=== PATIENT | male | born 1955 | race Caucasian/White ===

== ENCOUNTER → 2016-07-30 | Outpatient (CLI) | payer BC ==
[~2016-07-30] MED LIST: ASPCH81X PO; ASPI81TA28 PO; AZITTAB PO; HYDR-5688 PO; LPT/20 PO; PRLSR20 PO
--- NOTE | 2016-07-30 10:32 | DIAGNOSTIC IMAGING REPORT ---
ULTRASOUND OF THE CAROTID ARTERIES CLINICAL HISTORY: Dizziness COMPARISON STUDY: None. TECHNIQUE: Real-time, grayscale, and color Doppler sonography of the carotid arteries was performed. Imaging reviewed in the transverse and longitudinal planes. NASCET criteria was utilized for stenosis calcification. FINDINGS: There is mild atherosclerotic plaque present . The peak systolic velocity within the right internal carotid artery is 57 cm/sec. The systolic velocity ratio of right internal to common carotid artery is 0.5. The peak systolic velocity within the left internal carotid artery is 89 cm/sec. The systolic velocity ratio left internal to common carotid artery is 0.9. Antegrade flow is seen in the vertebral arteries. The external carotid arteries are patent. Blood pressure in the right arm measured 128 mm/Hg. Blood pressure in the left arm measured 138 mm/Hg. IMPRESSION: No evidence of hemodynamically significant carotid stenosis. Electronically signed by: Declan Hanson M.D. 07/30/2016 10:31 AM Dictated Date/Time: 07/30/2016 10:30 AM
== END | disposition home or self-care (01) ==
LOC: C.ULTR 09:21
PROVIDERS: ATTEND Nurse Practitioner Adult Health
DX: Z87.898 Personal history of other specified conditions (principal)

== ENCOUNTER 2016-09-20 23:32 | Emergency (ER) | payer BC ==
[~2016-09-20] VITALS: Ht 180.3 cm; Wt 111.9 kg
[~2016-09-20 23:32] MED LIST changes: -ASPI81TA28 PO; -AZITTAB PO; -HYDR-5688 PO; -LPT/20 PO
[2016-09-20 23:35] VITALS: TEMP 37.9; Ht 180.3 cm; Wt 111.9 kg
--- NOTE | 2016-09-20 23:55 | EMERGENCY ROOM VISIT NOTE ---
History Report prepared by Gina: Saul Boucher Under the Supervision of: Dr. Link Monsalve D.O. First contact with patient: 23:41 Chief Complaint: ABDOMINAL PAIN Stated Complaint: ABD PAIN,COUGHING UP BLOOD History of Present Illness The patient is a 61 year old male who presents to the Emergency Room with complaints of a persistent cough that the patient has been experiencing for the past week. This evening, 1 hour prior to arrival, the patient noticed some bright red blood in the phlegm that his cough was producing. He is also currently complaining of right upper quadrant abdominal pain. This pain is significantly worsened with his cough. He rates his abdominal pain as a 10/10 in severity when he coughs. He is breathing fine, and denies any chest pain or recent vomiting episodes. The patient has had no recent infections or respiratory colds. He denies any history of pneumonia or tuberculosis. He has no sick contacts. Source of History: patient Onset: 1 week DETACKER Position: other (Respiratory) Quality: other (Cough ) Timing: other (Persistent) Associated Symptoms: + abdominal pain (RUQ), No SOB, No chest pain Note: Coughing up blood Review of Systems See HPI for pertinent positives and negatives. A total of ten systems were reviewed and were otherwise negative. Past Medical & Surgical Surgical Problems: (1) History of appendectomy Family History Cancer Diabetes mellitus Gallbladder disease Heart disease Hypertension Kidney disease Social History Smoking Status: Never Smoker Alcohol Use: none Marital Status: single Housing Status: lives alone Occupation Status: employed Current/Historical Medications Scheduled Aspirin (Aspirin Ec), 81 MG PO QAM Atorvastatin (Atorvastatin Calcium), 20 MG PO QAM Azithromycin (Zithromax Z-Lionel), 0 PO UD Scheduled PRN Hydrocodone/Acetaminophen 5MG/325MG (Murray 5MG/325MG), 1 TABLET PO QID PRN for Pain Omeprazole (Prilosec), 20 MG PO DAILY PRN for GI Upset Allergies Coded Allergies: No Known Allergies (Unverified , 09/21/16) Physical Exam Vital Signs Date Time Temp Pulse Resp B/P Pulse Ox O2 Delivery O2 Flow Rate FiO2 09/21/16 01:33 Room Air 09/21/16 01:33 Room Air 09/20/16 23:35 37.9 95 20 121/80 94 Room Air Physical Exam GENERAL: Awake, alert, well-appearing, in no distress HENT: Normocephalic, atraumatic. Oropharynx unremarkable. EYES: Normal conjunctiva. Sclera non-icteric. NECK: Supple. No nuchal rigidity. FROM. No JVD. RESPIRATORY: Clear to auscultation. CARDIAC: Regular rate, normal rhythm. Extremities warm and well perfused. Pulses equal. ABDOMEN: Soft, non-distended. Mild epigastric tenderness to palpation. No rebound or guarding. No masses. RECTAL: Deferred. MUSCULOSKELETAL: Chest examination reveals no tenderness. The back is symmetrical on inspection without obvious abnormality. There is no CVA tenderness to palpation. No joint edema. LOWER EXTREMITIES: Calves are equal size bilaterally and non-tender. No edema. No discoloration. NEURO: Normal sensorium. No sensory or motor deficits noted. SKIN: No rash or jaundice noted. Medical Decision & Procedures ER Provider Diagnostic Interpretation: X ray results as stated below per my interpretation and radiologist interpretation. Other radiology results as stated below per my review and radiologist interpretation CTA CHEST: Fusiform aneurysmal dilation of the ascending thoracic aorta, measuring 4.1 cm in diameter. No dissection. Suboptimal opacification of the pulmonary arteries limits evaluation for PE. Numerous small nodular opacities throughout the lungs with the largest measuring 15 mm in the left upper lobe (2/44). Differential considerations include metastatic disese versus infectious or inflammatory process. Several borderline enlarged mediastinal lymph nodes and single borderline enlarged right axiallry lymph node, 15 mm in short axis (4/68). Findings nonspecific and could be reactive versus metastatic. No pleural effusion of pneumothorax. Heart size is normal. Small hiatal hernia. Cholelithiasis. Splenomegaly. Small right renal cyst. Radiologist: Truman Triplett MD. CHEST X-RAY: Bilateral pulmonary infiltrates present on x-ray. Laboratory Results 09/21/16 00:05 Red Blood Count 5.05, Mean Corpuscular Volume 89.7, Mean Corpuscular Hemoglobin 30.3, Mean Corpuscular Hemoglobin Concent 33.8, Mean Platelet Volume 9.7, Neutrophils (%) (Auto) 56.0, Lymphocytes (%) (Auto) 29.3, Monocytes (%) (Auto) 13.2, Eosinophils (%) (Auto) 1.1, Basophils (%) (Auto) 0.2, Neutrophils # (Auto ) 2.46, Lymphocytes # (Auto) 1.29, Monocytes # (Auto) 0.58, Eosinophils # (Auto ) 0.05, Basophils # (Auto) 0.01 09/21/16 00:05 Test 09/21/16 00:05 White Blood Count 4.40 K/uL (4.8-10.8) Red Blood Count 5.05 M/uL (4.7-6.1) Hemoglobin 15.3 g/dL (14.0-18.0) Hematocrit 45.3 % (42-52) Mean Corpuscular Volume 89.7 fL (80-100) Mean Corpuscular Hemoglobin 30.3 pg (25-34) Mean Corpuscular Hemoglobin Concent 33.8 g/dl (32-36) Platelet Count 119 K/uL (130-400) Mean Platelet Volume 9.7 fL (7.4-10.4) Neutrophils (%) (Auto) 56.0 % Lymphocytes (%) (Auto) 29.3 % Monocytes (%) (Auto) 13.2 % Eosinophils (%) (Auto) 1.1 % Basophils (%) (Auto) 0.2 % Neutrophils # (Auto) 2.46 K/uL (1.4-6.5) Lymphocytes # (Auto) 1.29 K/uL (1.2-3.4) Monocytes # (Auto) 0.58 K/uL (0.11-0.59) Eosinophils # (Auto) 0.05 K/uL (0-0.5) Basophils # (Auto) 0.01 K/uL (0-0.2) RDW Standard Deviation 43.8 fL (36.4-46.3) RDW Coefficient of Variation 13.3 % (11.5-14.5) Immature Granulocyte % (Auto) 0.2 % Immature Granulocyte # (Auto) 0.01 K/uL (0.00-0.02) Prothrombin Time 11.5 SECONDS (9.0-12.0) Prothromb Time International Ratio 1.1 (0.9-1.1) D-Dimer 340 ug/L FEU (0-500) Anion Gap 8.0 mmol/L (3-11) Est Creatinine Clear Calc Drug Dose 89.7 ml/min Estimated GFR () 83.5 Estimated GFR (Non- 72.1 BUN/Creatinine Ratio 20.2 (10-20) Calcium Level 8.3 mg/dl (8.5-10.1) Total Bilirubin 0.5 mg/dl (0.2-1) Aspartate Amino Transf (AST/SGOT) 56 U/L (15-37) Alanine Aminotransferase (ALT/SGPT) 73 U/L (12-78) Alkaline Phosphatase 49 U/L (45-117) Total Protein 6.4 gm/dl (6.4-8.2) Albumin 3.9 gm/dl (3.4-5.0) Globulin 2.5 gm/dl (2.5-4.0) Albumin/Globulin Ratio 1.6 (0.9-2) Laboratory results reviewed by me Medications Administered Medications (Trade) Dose Ordered Sig/Jhon Route Start Time Stop Time Status Last Admin Dose Admin Ceftriaxone Sodium 1 gm 1 gm NOW STAT IV 09/21/16 00:28 09/21/16 00:29 DC 09/21/16 01:00 1 GM Azithromycin/ Dextrose (Zithromax IV/D5 250ml) 255 ml @ 125 mls/hr ONE ONCE IV 09/21/16 00:30 09/21/16 02:32 DC 09/21/16 00:30 125 MLS/HR ECG Indication: other (Cough) Rate (beats per minute): 74 Rhythm: normal sinus (VS. A-flutter ) Findings: PVC, no acute ischemic change ED Course 2343: The patient was evaluated in room A3. A complete history and physical exam was performed. 0028: Ordered Rocephin 1 gm IV. 0030: Ordered Azithromycin 500 mg 255 mL @ 125 mL/hr IV. 0236: I reevaluated the patient. Discussed results and discharge instructions: he verbalized understanding and agreement. The patient is ready for discharge. Medical Decision Differential diagnosis include: Bronchitis, pneumonia, pleurisy, viral syndrome , upper respiratory infection, abdominal wall strain. Patient on repeat examination at 2:20 AM resting in no distress no current chest pain or shortness of breath no hemoptysis. Patient states that he does have abdominal wall pain when he coughs. Patient of note had a CT finding of an aneurysmal dilatation of the ascending thoracic aorta measuring 4.1 cm but no dissection and no evidence of pulmonary and wasn't. I have discussed this finding with the patient. I will be treating this patient for a bronchopulmonary complaint. He will be referred to our CT surgeon through case management. He is aware of the CT findings. Impression Primary Impression: Bronchitis Additional Impressions: Pleurisy Abnormal CT lung screening Scribe Attestation The scribe's documentation has been prepared under my direction and personally reviewed by me in its entirety. I confirm that the note above accurately reflects all work, treatment, procedures, and medical decision making performed by me. Departure Information Dispostion Home / Self-Care Prescriptions Hydrocodone/Acetaminophen 5MG/325MG (Murray 5MG/325MG) Tab 1 TABLET PO QID Y for Pain for 5 Days, #14 TAB Prov: Link Monsalve DO 09/21/16 Azithromycin (ZITHROMAX Z-LIONEL) 250 Mg Tab 0 PO UD, #1 PKT Prov: Link Monsalve DO 09/21/16 Referrals Ronit Naik DO (PCP) Freddy An MD Patient Instructions Bronchitis Acute, My [facility] Additional Instructions Follow-up with primary care physician. Follow-up with CT surgeon as referred to by our case mgr. Return for any worsening symptoms. Problem Qualifiers
[2016-09-21 00:16] LABS: BASO % 0.2 %; BASO ABS # 0.01 K/uL (0-0.2); COMPLETE YES; EOS % 1.1 %; HEMATOCRIT 45.3 % (42-52); IG% 0.2 %; LYMPH % 29.3 %; LYMPH ABS # 1.29 K/uL (1.2-3.4); MEAN CELL VOLUME 89.7 fL (80-100); MEAN CORPUSCULAR HEMOGLOBIN 30.3 pg (25-34); MEAN CORPUSCULAR HGB CONC 33.8 g/dl (32-36); MEAN PLATELET VOLUME 9.7 fL (7.4-10.4); MONO % 13.2 %; PLATELET COUNT 119 K/uL (130-400); RED BLOOD COUNT 5.05 M/uL (4.7-6.1)
[2016-09-21] MEDS ORDERED: CEFTRIAXONE SOD INJ 1 GM ADDVIAL IV STA (00:28)
[2016-09-21] MEDS ORDERED: AZITHROMYCIN IV 500 MG in DEXTROSE 5% 250ML 250 ML IV ONE (00:30)
[2016-09-21 00:35] LABS: BUN/CREATININE RATIO 20.2 (10-20); CALCIUM 8.3 mg/dl (8.5-10.1); CREATININE 1.1 mg/dl (0.60-1.40); POTASSIUM 3.9 mmol/L (3.5-5.1)
[2016-09-21 00:38] LABS: ALB/GLOB RATIO 1.6 (0.9-2)
[2016-09-21] MEDS ORDERED: OPTIRAY 320 IV PRN (00:45)
[2016-09-21 00:48] LABS: INR 1.1 (0.9-1.1); PROTHROMBIN TIME (PATIENT) 11.5 SECONDS (9.0-12.0)
[2016-09-21] MEDS ORDERED: LPT/20 PO (01:35)
[2016-09-21] MEDS ORDERED: ASPI81TA28 PO (01:35)
[2016-09-21] MEDS ORDERED: AZITTAB PO (02:29)
[2016-09-21] MEDS ORDERED: HYDR-5688 PO (02:29)
[2016-09-21 03:34] VITALS: BP 118/70; PULSE 77; O2SAT 94
--- NOTE | 2016-09-21 07:14 | DIAGNOSTIC IMAGING REPORT ---
SINGLE VIEW CHEST CLINICAL HISTORY: Cough. Generalized abdominal pain. FINDINGS: An AP, portable, upright chest radiograph is compared to study dated 10/28/2014. The examination is degraded by portable technique, large body habitus, apical lordotic positioning, and patient rotation. The heart is enlarged. There is mild atherosclerotic calcification of the thoracic aorta. Pulmonary vascular congestion is observed. Numerous small pulmonary nodules are suspected. Bibasilar airspace opacities are observed. No large pleural effusion or pneumothorax is seen. The bony thorax is grossly intact. IMPRESSION: 1. Cardiomegaly with mild pulmonary vascular congestion. 2. Numerous pulmonary nodules are suspected. 3. There are bibasilar airspace opacities, likely representing atelectasis. Correlate clinically for evidence of a superimposed infectious/inflammatory pneumonitis. Electronically signed by: Feng Sheridan M.D. 09/21/2016 7:12 AM Dictated Date/Time: 09/21/2016 7:11 AM
--- NOTE | 2016-09-21 07:27 | DIAGNOSTIC IMAGING REPORT ---
CT ANGIOGRAPHY OF THE CHEST CT DOSE: 717.50 mGycm CLINICAL HISTORY: Hemoptysis. Upper abdominal pain. TECHNIQUE: Arterial phase imaging the chest was performed. Injection of 92 cc Optiray 320 IV was uneventful. Sagittal and coronal reconstructions were viewed as well. COMPARISON STUDY: Chest radiograph October 28, 2014 and September 21, 2016. FINDINGS: The heart is moderately enlarged. There is no pericardial effusion. There is mild dilatation of the ascending aorta which measures 4 cm. There is no thoracic aortic dissection. Opacification of the pulmonary arteries is suboptimal. There is no large central pulmonary embolus. There are multiple enlarged thoracic lymph nodes, including a 2.3 x 1.5 cm right axillary lymph node, a right paratracheal lymph node shown on image 16 of 121 measures 1.1 cm in short axis diameter and a left suprahilar lymph node that measures 1 cm in short axis diameter. The central airways are patent. There are in numerable nodules throughout the lungs with irregular margins. The largest is a 1.5 cm left upper lobe nodule shown on image 110 of 301. There is diffuse bronchial wall thickening. Lungs are suboptimally assessed due to respiratory motion. There is no pneumothorax or pleural effusion. Scattered groundglass opacities are also present. No suspicious osseous lesions are present. There is moderate splenomegaly. Gallstones are noted within the gallbladder. A 1.8 cm cyst within the upper pole of the right kidney is noted. There are few prominent upper abdominal lymph nodes although none are pathologically enlarged. IMPRESSION: 1. Innumerable irregular and ill-defined nodules throughout the lungs with scattered groundglass opacities, including a 1.4 cm left upper lobe irregular nodule. In addition, there is mild right axillary and mediastinal lymphadenopathy. The findings are suspicious for a neoplastic process and the right axillary lymph node could be sampled by ultrasound guided fine needle aspiration. However, the findings are nonspecific and unusual inflammatory, granulomatous and infectious processes could appear similar. A CT of the abdomen and pelvis with contrast could be obtained. 2. Mild dilatation of the ascending aorta without dissection. 3. Moderate cardiomegaly. 4. Cholelithiasis. Electronically signed by: Baldev Paulino M.D. 09/21/2016 7:26 AM Dictated Date/Time: 09/21/2016 7:06 AM
== END 2016-09-21 03:56 | disposition home or self-care (01) ==
LOC: C.EDB 23:33 → C.EDA 09-21 03:56
DX: J40 Bronchitis, not specified as acute or chronic (principal); R09.1 Pleurisy; R91.8 Other nonspecific abnormal finding of lung field; Z90.89 Acquired absence of other organs; Z80.9 Family history of malignant neoplasm, unspecified; Z83.3 Family history of diabetes mellitus; Z82.49 Family history of ischemic heart disease and other diseases of the circulatory system; Z84.1 Family history of disorders of kidney and ureter; Z79.82 Long term (current) use of aspirin

== ENCOUNTER → 2016-11-14 | Outpatient (CLI) | payer BC ==
[~2016-11-14] MED LIST changes: -ASPCH81X PO; +ASPI81TA28 PO; +CLR10 PO; +LPT/20 PO; +PANT40TA PO
--- NOTE | 2016-11-14 11:03 | DIAGNOSTIC IMAGING REPORT ---
PET/CT HISTORY: LUNG NODULE TECHNIQUE: PET/CT was performed from the base of the skull through the pelvis following the intravenous administration of 14.7 mCi of F18-FDG. Non-contrast CT imaging was performed over the same range without breath-hold for attenuation correction of PET images and anatomic correlation, but not for primary interpretation as it is not of standard diagnostic quality. CT DOSE: COMPARISON: Chest CTA 09/21/2016. FINDINGS: HEAD AND NECK: Symmetric FDG uptake seen within the salivary glands is likely physiologic. There is moderate FDG uptake within the adenoid and palatine tonsils with an SUV max of 4. No FDG avid or enlarged cervical lymph nodes. CHEST: There again noted multiple bilateral pulmonary nodules seen throughout the lungs. These are not significantly changed. Dominant nodule within the left lung is seen within the left upper lobe and measures 1.4 cm. Dominant nodule within the right lung seen within the right lower lobe and measures 1.8 cm. A few of the scattered nodules demonstrate FDG uptake. Dominant nodule within the right lower lobe demonstrates an SUV max of 3.4. Multiple FDG avid mediastinal, hilar, left internal mammary, bilateral axillary, bilateral supraclavicular lymph nodes. Dominant prevascular lymph node demonstrates an SUV max of 2.9 and measures 2.0 x 1.0 cm. Of note, all of these lymph nodes within the chest have slightly decreased in size compared to the recent chest CT. ABDOMEN/PELVIS: The spleen is enlarged measuring 17 cm in length. Lymphadenopathy involving the retroperitoneal, iliac, pelvic, and inguinal jeffrey stations demonstrate abnormal FDG uptake. Dominant lymph node seen within the right external iliac chain measures 3.0 x 1.3 cm and demonstrates an SUV max of 8.4. MUSCULOSKELETAL: Patchy mild marrow FDG uptake seen within the spine and pelvis. No corresponding lytic or blastic osseous lesions. IMPRESSION: 1. No change in the innumerable bilateral pulmonary nodules some of which demonstrate abnormal FDG uptake. 2. There is also FDG avid lymphadenopathy within the chest, abdomen, and pelvis as described above. Of note, the FDG avid lymph nodes within the chest have slightly decreased in size compared to the recent chest CT. 3. Mild patchy FDG uptake within the marrow of the spine and pelvis without corresponding lesion on CT. 4. Splenomegaly. 5. Above findings can be seen in the setting of lymphoma or sarcoidosis. Tissue sampling is recommended for further evaluation. Electronically signed by: Dick Liang M.D. 11/14/2016 11:02 AM Dictated Date/Time: 11/14/2016 10:30 AM
== END | disposition home or self-care (01) ==
LOC: C.PET 06:36
PROVIDERS: ATTEND Surgery
DX: R91.8 Other nonspecific abnormal finding of lung field (principal); R59.1 Generalized enlarged lymph nodes; R93.7 Abnormal findings on diagnostic imaging of other parts of musculoskeletal system

== ENCOUNTER → 2017-05-15 | Outpatient (CLI) | payer OTHER ==
[~2017-05-15] MED LIST changes: -CLR10 PO; -PANT40TA PO
[2017-05-15 12:18] LABS: HEMATOCRIT 36.6 % (42-52); MEAN CELL VOLUME 100.5 fL (80-100); MEAN CORPUSCULAR HEMOGLOBIN 31.3 pg (25-34); MEAN CORPUSCULAR HGB CONC 31.1 g/dl (32-36); MEAN PLATELET VOLUME 9.4 fL (7.4-10.4); PLATELET COUNT 181 K/uL (130-400); RED BLOOD COUNT 3.64 M/uL (4.7-6.1); WHITE BLOOD COUNT 6.21 K/uL (4.8-10.8)
[2017-05-15 12:50] LABS: ALT/SGPT 41 U/L (12-78); BLOOD UREA NITROGEN 20 mg/dl (7-18); BUN/CREATININE RATIO 19.5 (10-20); CALCIUM 8.9 mg/dl (8.5-10.1); CARBON DIOXIDE 28 mmol/L (21-32); CHLORIDE 110 mmol/L (98-107); CHOLESTEROL 130 mg/dl (0-200); CREATININE 1.02 mg/dl (0.60-1.40); GLUCOSE 122 mg/dl (70-99); POTASSIUM 4.3 mmol/L (3.5-5.1); SODIUM 143 mmol/L (136-145); TRIGLYCERIDES 132 mg/dl (0-150); VERY LOW DENSITY LIPOPROT CALC 26 mg/dl
[2017-05-15 13:01] LABS: ALB/GLOB RATIO 1.6 (0.9-2); ALKALINE PHOSPHATASE 68 U/L (45-117); AST/SGOT 25 U/L (15-37); CHOLESTEROL/HDL RATIO 3.5; FERRITIN 436.2 ng/ml (8.0-388.0); HDL CHOLESTEROL 37 mg/dl; LDL CHOLESTEROL CALCULATED 67 mg/dl
== END | disposition home or self-care (01) ==
LOC: C.LABPBG 08:43
PROVIDERS: ATTEND Family Medicine
DX: R68.81 Early satiety (principal); E78.00 Pure hypercholesterolemia, unspecified; R10.13 Epigastric pain; R53.83 Other fatigue; Z11.59 Encounter for screening for other viral diseases

== ENCOUNTER → 2017-05-27 | Outpatient (CLI) | payer OTHER ==
[~2017-05-27] MED LIST changes: -ASPI81TA28 PO; +CLR10 PO; +LIDOCAINE HCL 2% 2 ML VIAL (20MG/ML) ONE; +PANT40TA PO; -PRLSR20 PO; +PROPOFOL IV EMULSION 10 MG/ML 20 ML VIAL IV ONE
[2017-05-27 12:15] LABS: BASO % 0.7 %; BASO ABS # 0.05 K/uL (0-0.2); COMPLETE YES; EOS % 4.1 %; IG% 0.9 %; LYMPH % 24.9 %; LYMPH ABS # 1.89 K/uL (1.2-3.4); MEAN CELL VOLUME 97.2 fL (80-100); MEAN CORPUSCULAR HEMOGLOBIN 31.3 pg (25-34); MEAN CORPUSCULAR HGB CONC 32.2 g/dl (32-36); MEAN PLATELET VOLUME 9.4 fL (7.4-10.4); MONO % 12.2 %; NEUT % 57.2 %; PLATELET COUNT 217 K/uL (130-400); RED BLOOD COUNT 4.22 M/uL (4.7-6.1)
== END | disposition home or self-care (01) ==
LOC: C.LABPBG 09:36
PROVIDERS: ATTEND Family Medicine
DX: D64.9 Anemia, unspecified (principal)

== ENCOUNTER → 2017-05-28 | Outpatient (CLI) | payer OTHER ==
[~2017-05-28] MED LIST changes: -LIDOCAINE HCL 2% 2 ML VIAL (20MG/ML) ONE; +OPTIRAY 320 IV PRN; -PROPOFOL IV EMULSION 10 MG/ML 20 ML VIAL IV ONE
--- NOTE | 2017-05-28 08:36 | DIAGNOSTIC IMAGING REPORT ---
CT SCAN OF THE ABDOMEN AND PELVIS WITH IV CONTRAST CLINICAL HISTORY: Epigastric abdominal pain. Vomiting with eating. Lymphadenopathy. COMPARISON STUDY: Abdominal ultrasound dated 10/28/2014. TECHNIQUE: Following the IV administration of 119 cc of Optiray 320, CT scan of the abdomen and pelvis is performed from the lung bases to the proximal femora. Images are reviewed in the axial, sagittal, and coronal planes. IV contrast was administered without complication. A dose lowering technique was utilized adhering to the principles of ALARA. CT DOSE: 1228.44 mGy.cm FINDINGS: Lung bases: The heart is enlarged and without pericardial effusion. The mitral annulus is densely calcified. There is a small hiatal hernia. There are numerous nodules present at both lung bases with foci of parenchymal scarring versus atelectasis. Liver: The contrast-enhanced liver is normal in size, contour, and attenuation. There is no intrahepatic biliary ductal dilatation. The hepatic veins and portal veins are patent. Gallbladder: Numerous gallstones are identified. There is no CT evidence of acute cholecystitis. Spleen: The spleen is enlarged, measuring 17.5 cm in length. Pancreas: Unremarkable. Adrenal glands: Unremarkable. Kidneys: The contrast enhanced kidneys are normal in size and without hydronephrosis. Small extrarenal pelvises are seen bilaterally. Mild urothelial thickening is suggested in the renal pelvis bilaterally and along the course of both ureters. The kidneys enhance symmetrically. Bilateral renal cysts measure up to 2.6 cm. Abdominal vasculature: The abdominal aorta is normal in course and caliber noting mild atherosclerotic calcification. Bowel: There is mild colonic diverticulosis without CT evidence of acute diverticulitis. No bowel obstruction is seen. The appendix is not identified and reported surgically absent. Peritoneum: There is no intraperitoneal free air or abdominal ascites. There is a small fat-containing umbilical hernia. Lymphadenopathy: There are numerous enlarged lymph nodes identified in the abdomen and pelvis, greatest in the retroperitoneal space and iliac chains. A left periaortic node on image #190 measures 2.5 x 1.2 cm. A left iliac chain node on image #277 measures 2.0 x 1.4 cm. A left external iliac chain node on image #417 measures 3.4 x 1.7 cm. Numerous mildly enlarged mesenteric nodes are identified. The largest is seen on image 263 and measures 1.8 x 1.1 cm. There are mildly enlarged left inguinal lymph nodes. The largest is seen on image #509 and measures 2.8 x 1.7 cm. Pelvic viscera: The prostate gland is mildly enlarged and heterogeneous. There is median lobe hypertrophy. The bladder wall is thickened and trabeculated consistent with chronic outlet obstruction. Postoperative change is noted in the right groin. Skeletal structures: There is mild lumbosacral spondylosis. No lytic or blastic lesions are seen. IMPRESSION: 1. Marked splenomegaly. 2. Abdominal, pelvic, and inguinal lymphadenopathy as above. This constellation of findings is most typical for a lymphoproliferative disorder such is leukemia/lymphoma. Further assessment will be required. 3. Numerous pulmonary nodules and foci of parenchymal opacification are present at both lung bases. This could also be related to neoplasm/lymphoproliferative process versus an infectious/inflammatory etiology. Clinical correlation will be essential. 4. Cholelithiasis. 5. Mild urothelial thickening is suggested in the renal pelvis bilaterally and involving both ureters. Correlation with clinical findings and urinalysis is recommended. 6. Cardiomegaly and hiatal hernia. 7. Additional findings as above. Electronically signed by: Feng Sheridan M.D. 05/28/2017 8:35 AM Dictated Date/Time: 05/28/2017 8:21 AM
== END | disposition home or self-care (01) ==
LOC: C.CTS 07:53
PROVIDERS: ATTEND Family Medicine
DX: R59.0 Localized enlarged lymph nodes (principal); R16.1 Splenomegaly, not elsewhere classified; R91.8 Other nonspecific abnormal finding of lung field; K80.20 Calculus of gallbladder without cholecystitis without obstruction; I51.7 Cardiomegaly; K44.9 Diaphragmatic hernia without obstruction or gangrene

== ENCOUNTER → 2017-05-29 | Day surgery (SDC) | payer OTHER ==
[2017-05-23 08:00] VITALS: BMI 33.0
[~2017-05-29] VITALS: Ht 180.3 cm; Wt 109.1 kg
[~2017-05-29] MED LIST changes: -OPTIRAY 320 IV PRN; +SODIUM CHLORIDE 0.9% 500ML 500 ML IV ONE
[2017-05-29 14:11] VITALS: Ht 180.3 cm; Wt 109.1 kg
--- NOTE | 2017-05-29 14:56 | Endo History and Physical ---
History & Physical Date of Service: May 29, 2017. Chief Complaint: NAUSEA AND VOMITING Referring Physician: DR HAILE History of Present Illness 61 yo CM who presents for EGD secondary to nausea and vomiting. Past Surgical History Hx Cardiac Surgery: No Hx Internal Defibrillator: No Hx Pacemaker: No Hx Abdominal Surgery: Yes (APPY) Hx of Implantable Prosthesis: No Hx Post-Op Nausea and Vomiting: No Hx Cancer Surgery: No Hx Thoracic Surgery: No Hx Orthopedic: No Hx Urinary Tract Surgery: No Family History None Social History Smoking Status: Never Smoker Hx Substance Use: No Hx Alcohol Use: No Allergies Coded Allergies: No Known Allergies (Unverified , 05/29/17) Current Medications Reported Home Medications Medications Dose Route/Sig Max Daily Dose Days Date Category Claritin (Loratadine) 10 Mg Tab 10 Mg PO QAM 05/23/17 Reported Protonix (Pantoprazole Sodium) 40 Mg Tab 40 Mg PO QAM 05/23/17 Reported Atorvastatin Calcium (Atorvastatin) 20 Mg Tab 20 Mg PO QAM 09/21/16 Reported Vital Signs Weight (Kilograms): 109.09 Height (Feet): 5 Height (Inches): 11 Date Time Temp Pulse Resp B/P (MAP) Pulse Ox O2 Delivery O2 Flow Rate FiO2 05/29/17 14:22 37 77 20 133/75 (94) 95 Room Air Physical Exam General Appearance: WD/WN, no apparent distress Respiratory/Chest: Auscultation: breath sounds normal Cardiovascular: Heart Auscultation: RRR Abdomen: Bowel Sounds: normal Inspection & Palpation: soft, non-distended, no tenderness, guarding & rebound Assessment and Plan Assessment: 61 yo CM who presents for EGD secondary to nausea and vomiting. Plan: Proceed with EGD.
--- NOTE | 2017-05-29 15:19 | Anesthesiology Progress Note ---
Anesthesia Post Op Note Date & Time May 29, 2017 at 15:18 Vital Signs Pain Intensity: 0 Vital Signs Past 12 Hours Date Time Temp Pulse Resp B/P (MAP) Pulse Ox O2 Delivery O2 Flow Rate FiO2 05/29/17 14:22 37 77 20 133/75 (94) 95 Room Air Notes Mental Status: alert / awake / arousable, participated in evaluation Pt Amnestic to Procedure: Yes Nausea / Vomiting: adequately controlled Pain: adequately controlled Airway Patency, RR, SpO2: stable & adequate BP & HR: stable & adequate Hydration State: stable & adequate Anesthetic Complications: no major complications apparent The patient is awake and is vitals are stable in recovery.
--- NOTE | 2017-05-29 15:24 | GI REPORT ---
Procedure Date: 05/29/2017 2:45 PM Procedure: Upper GI endoscopy Indications: Epigastric abdominal pain, Nausea with vomiting Medicines: Monitored Anesthesia Care Complications: No immediate complications. Estimated Blood Loss: Estimated blood loss: none. Procedure: Pre-Anesthesia Assessment: - Prior to the procedure, a History and Physical was performed, and patient medications and allergies were reviewed. The patient's tolerance of previous anesthesia was also reviewed. The risks and benefits of the procedure and the sedation options and risks were discussed with the patient. All questions were answered, and informed consent was obtained. Prior Anticoagulants: The patient has taken no previous anticoagulant or antiplatelet agents. ASA Grade Assessment: II - A patient with mild systemic disease. After reviewing the risks and benefits, the patient was deemed in satisfactory condition to undergo the procedure. After obtaining informed consent, the endoscope was passed under direct vision. Throughout the procedure, the patient's blood pressure, pulse, and oxygen saturations were monitored continuously. The scope was introduced through the mouth, and advanced to the second part of duodenum. The upper GI endoscopy was accomplished without difficulty. The patient tolerated the procedure well. Findings: The esophagus was normal. A small hiatus hernia was present. Biopsies were taken with a cold forceps in the gastric antrum for Helicobacter pylori testing. The examined duodenum was normal. Impression: - Normal esophagus. - Small hiatus hernia. - Normal examined duodenum. - Biopsies were taken with a cold forceps for Helicobacter pylori testing. Recommendation: - Resume previous diet. - Continue present medications. - Await pathology results. - Return to primary care physician as previously scheduled. True Alcocer DO 05/29/2017 3:23:52 PM This report has been signed electronically. Note Initiated On: 05/29/2017 2:45 PM I attest to the content of the Intraoperative Record and orders documented therein, exceptions below
[2017-05-29 15:42] VITALS: BP 127/90; PULSE 74; O2SAT 96
--- NOTE | 2017-05-29 15:42 | Anesthesiology Progress Note ---
Anesthesia Post Op Note Date & Time May 29, 2017 at 15:42 Vital Signs Pain Intensity: 0 Vital Signs Past 12 Hours Date Time Temp Pulse Resp B/P (MAP) Pulse Ox O2 Delivery O2 Flow Rate FiO2 05/29/17 15:12 74 18 106/74 (85) 95 Room Air 05/29/17 14:22 37 77 20 133/75 (94) 95 Room Air Notes Mental Status: alert / awake / arousable, participated in evaluation Pt Amnestic to Procedure: Yes Nausea / Vomiting: adequately controlled Pain: adequately controlled Airway Patency, RR, SpO2: stable & adequate BP & HR: stable & adequate Hydration State: stable & adequate Anesthetic Complications: no major complications apparent
--- NOTE | 2017-05-29 15:56 | Discharge Instructions ---
Endoscopy Patient Instructions Date / Procedure(s) Performed May 29, 2017. EGD Allergy Information Coded Allergies: No Known Allergies (Unverified , 05/29/17) Discharge Date / Findings May 29, 2017. Gastric antrum biopsies Hiatal hernia Medication Instructions OK to resume all medications today as prescribed Reported Home Medications Medications Dose Route/Sig Max Daily Dose Days Date Category Claritin (Loratadine) 10 Mg Tab 10 Mg PO QAM 05/23/17 Reported Protonix (Pantoprazole Sodium) 40 Mg Tab 40 Mg PO QAM 05/23/17 Reported Atorvastatin Calcium (Atorvastatin) 20 Mg Tab 20 Mg PO QAM 09/21/16 Reported Provider Instructions Activity Restrictions - No exercising or heavy lifting for 24 hours. - Do not drink alcohol the day of the procedure. - Do not drive a car or operate machinery until the day after the procedure. - Do not make any important decisions or sign important papers in 24 hours after the procedure. Following Day: - Return to full activity which may include returning to work/school. Diet Start your diet with liquids and light foods (jello, soup, juice, toast). Then eat your usual diet if not nauseated. Treatment For Common After Affects For mild abdominal pain, bloating, or excessive gas: - Rest - Eat lightly - Lie on right side Follow-Up Information Follow-up with DR HAILE as scheduled Anesthesia Information What You Should Know You have had a procedure that required some medicine to reduce anxiety and discomfort. This treatment is called moderate sedation. After receiving the treatment, you may be sleepy, but you will be able to breathe on your own. The effects of the treatment may last for several hours. Follow these instructions along with Activity/Diet recommendations noted above: * Do NOT do anything where dizziness or clumsiness would be dangerous. * Rest quietly at home today, then you can be up and about tomorrow. * Have a responsible person stay with you the rest of today. * You may have had an I.V. today. If so, you may take the dressing off later today. Recommendations Call your doctor if: * Trouble breathing * Continuous vomiting for more than 24 hours * Temperature above 101 degrees * Severe abdominal pain or bloating * Pain not relieved by pain medicine ordered * There is increased drainage or redness from any incision * A large amount of rectal bleeding greater than 2-3 tablespoons. (If you had a polyp/s removed or have hemorrhoids, a small amount of blood - from the rectum is to be expected.) * You have any unanswered questions or concerns. IN THE EVENT OF A SERIOUS EMERGENCY, GO TO THE NEAREST EMERGENCY ROOM Your discharge instructions were prepared by provider True Alcocer. Patient Instructions Signature Page Tao Knight Patient (or Guardian) Signature/Date: I have read and understand the instructions given to me by my caregivers. Caregiver/RN/Doctor Signature/Date: The above-named patient and/or guardian has received patient instructions on this date. + Original Patient Signature Page (only) stays with chart. Please make copy for patient.
== END | disposition home or self-care (01) ==
LOC: C.GI 14:01
PROVIDERS: ATTEND Internal Medicine
DX: R10.13 Epigastric pain (principal); R11.2 Nausea with vomiting, unspecified; K44.9 Diaphragmatic hernia without obstruction or gangrene; Z79.899 Other long term (current) drug therapy

== ENCOUNTER → 2017-06-14 | Outpatient (CLI) | payer OTHER ==
[~2017-06-14] MED LIST changes: -SODIUM CHLORIDE 0.9% 500ML 500 ML IV ONE
--- NOTE | 2017-06-14 09:23 | DIAGNOSTIC IMAGING REPORT ---
ABDOMEN LIMITED (US) HISTORY: Pain. Nausea. R10.11 Abdominal pain. COMPARISON: 10/28/2014 FINDINGS: Pancreas: The pancreas demonstrates a normal echotexture. Liver: Fatty infiltration Gallbladder: Several small gallstones. Normal thickness gallbladder wall. No pericholecystic fluid. CBD: 5 mm Right kidney: No hydronephrosis. IMPRESSION: 1. Several small gallstones. 2. Normal caliber bile ducts. 3. Moderate fatty infiltration of the liver. The above report was generated using voice recognition software. It may contain grammatical, syntax or spelling errors. Electronically signed by: Tao Woods M.D. 06/14/2017 9:22 AM Dictated Date/Time: 06/14/2017 9:21 AM
== END | disposition home or self-care (01) ==
LOC: C.ULTR 08:31
PROVIDERS: ATTEND Physician Assistant
DX: K80.20 Calculus of gallbladder without cholecystitis without obstruction (principal); K76.0 Fatty (change of) liver, not elsewhere classified

== ENCOUNTER → 2017-06-21 | Outpatient (CLI) | payer OTHER ==
--- NOTE | 2017-06-21 11:13 | DIAGNOSTIC IMAGING REPORT ---
NUCLEAR MEDICINE HEPATOBILIARY SCAN CLINICAL HISTORY: Right upper quadrant abdominal pain. Gallstones. COMPARISON: Right upper quadrant ultrasound June 14, 2017. TECHNIQUE: 5.1 mCi of technetium 99m Choletec IV was injected at 10:15 AM on June 21, 2017. Immediately following injection, imaging of the abdomen was carried out for 60 minutes in the anterior projection. FINDINGS: Hepatic uptake of radiotracer is prompt and homogeneous. Activity is first identified within the common bile duct and small bowel at 10 minutes. Gallbladder activity is first noted at 20 minutes. IMPRESSION: Normal hepatobiliary scan. No evidence of acute cholecystitis. Electronically signed by: Baldev Paulino M.D. 06/21/2017 11:12 AM Dictated Date/Time: 06/21/2017 11:10 AM
== END | disposition home or self-care (01) ==
LOC: C.NUCL 09:52
PROVIDERS: ATTEND Physician Assistant
DX: K80.20 Calculus of gallbladder without cholecystitis without obstruction (principal); R10.11 Right upper quadrant pain

== ENCOUNTER → 2017-06-25 | Day surgery (SDC) | payer OTHER ==
[2017-06-14 13:57] VITALS: Ht 180.3 cm; Wt 111.4 kg
[~2017-06-25] VITALS: Ht 180.3 cm; Wt 111.4 kg
[~2017-06-25] MED LIST changes: +LIDOCAINE HCL 2% 2 ML VIAL (20MG/ML) ONE; +PROPOFOL IV EMULSION 10 MG/ML 20 ML VIAL IV ONE; +SODIUM CHLORIDE 0.9% 500ML 500 ML IV ONE
--- NOTE | 2017-06-25 09:48 | Endo History and Physical ---
History & Physical Date of Service: Jun 25, 2017. Chief Complaint: screening Referring Physician: Dr. Ronit Naik History of Present Illness 61 yo CM who presents for screening colonoscopy. Past Surgical History Hx Cardiac Surgery: No Hx Internal Defibrillator: No Hx Pacemaker: No Hx Abdominal Surgery: Yes (APPY) Hx of Implantable Prosthesis: No Hx Post-Op Nausea and Vomiting: No Hx Cancer Surgery: No Hx Thoracic Surgery: No Hx Orthopedic: No Hx Urinary Tract Surgery: No Family History None Social History Smoking Status: Never Smoker Hx Substance Use: No Hx Alcohol Use: No Allergies Coded Allergies: No Known Allergies (Verified , 06/25/17) Current Medications Reported Home Medications Medications Dose Route/Sig Max Daily Dose Days Date Category Claritin (Loratadine) 10 Mg Tab 10 Mg PO QAM 05/23/17 Reported Protonix (Pantoprazole Sodium) 40 Mg Tab 40 Mg PO QAM 05/23/17 Reported Atorvastatin Calcium (Atorvastatin) 20 Mg Tab 20 Mg PO QAM 09/21/16 Reported Vital Signs Weight (Kilograms): 111.36 Height (Feet): 5 Height (Inches): 11 Date Time Temp Pulse Resp B/P (MAP) Pulse Ox O2 Delivery O2 Flow Rate FiO2 06/25/17 08:50 36.7 61 18 145/82 (103) 94 Room Air Physical Exam General Appearance: WD/WN, no apparent distress Respiratory/Chest: Auscultation: breath sounds normal Cardiovascular: Heart Auscultation: RRR Abdomen: Bowel Sounds: normal Inspection & Palpation: soft, non-distended, no tenderness, guarding & rebound Assessment and Plan Assessment: 61 yo CM who presents for screening colonoscopy. Plan: Proceed with colonoscopy.
--- NOTE | 2017-06-25 10:28 | Discharge Instructions ---
Endoscopy Patient Instructions Date / Procedure(s) Performed Jun 25, 2017. Colonoscopy Allergy Information Coded Allergies: No Known Allergies (Verified , 06/25/17) Discharge Date / Findings Jun 25, 2017. Internal hemorrhoids Medication Instructions OK to resume all medications today as prescribed Reported Home Medications Medications Dose Route/Sig Max Daily Dose Days Date Category Claritin (Loratadine) 10 Mg Tab 10 Mg PO QAM 05/23/17 Reported Protonix (Pantoprazole Sodium) 40 Mg Tab 40 Mg PO QAM 05/23/17 Reported Atorvastatin Calcium (Atorvastatin) 20 Mg Tab 20 Mg PO QAM 09/21/16 Reported Provider Instructions Activity Restrictions - No exercising or heavy lifting for 24 hours. - Do not drink alcohol the day of the procedure. - Do not drive a car or operate machinery until the day after the procedure. - Do not make any important decisions or sign important papers in 24 hours after the procedure. Following Day: - Return to full activity which may include returning to work/school. Diet Start your diet with liquids and light foods (jello, soup, juice, toast). Then eat your usual diet if not nauseated. Treatment For Common After Affects For mild abdominal pain, bloating, or excessive gas: - Rest - Eat lightly - Lie on right side Follow-Up Information Follow-up with Dr. Ronit Naik as scheduled Anesthesia Information What You Should Know You have had a procedure that required some medicine to reduce anxiety and discomfort. This treatment is called moderate sedation. After receiving the treatment, you may be sleepy, but you will be able to breathe on your own. The effects of the treatment may last for several hours. Follow these instructions along with Activity/Diet recommendations noted above: * Do NOT do anything where dizziness or clumsiness would be dangerous. * Rest quietly at home today, then you can be up and about tomorrow. * Have a responsible person stay with you the rest of today. * You may have had an I.V. today. If so, you may take the dressing off later today. Recommendations Call your doctor if: * Trouble breathing * Continuous vomiting for more than 24 hours * Temperature above 101 degrees * Severe abdominal pain or bloating * Pain not relieved by pain medicine ordered * There is increased drainage or redness from any incision * A large amount of rectal bleeding greater than 2-3 tablespoons. (If you had a polyp/s removed or have hemorrhoids, a small amount of blood - from the rectum is to be expected.) * You have any unanswered questions or concerns. IN THE EVENT OF A SERIOUS EMERGENCY, GO TO THE NEAREST EMERGENCY ROOM Your discharge instructions were prepared by provider True Alcocer. Patient Instructions Signature Page Tao Chongell Patient (or Guardian) Signature/Date: I have read and understand the instructions given to me by my caregivers. Caregiver/RN/Doctor Signature/Date: The above-named patient and/or guardian has received patient instructions on this date. + Original Patient Signature Page (only) stays with chart. Please make copy for patient.
--- NOTE | 2017-06-25 10:31 | GI REPORT ---
Procedure Date: 06/25/2017 9:20 AM Procedure: Colonoscopy Indications: Screening for colorectal malignant neoplasm Medicines: Monitored Anesthesia Care Complications: No immediate complications. Estimated Blood Loss: Estimated blood loss: none. Procedure: Pre-Anesthesia Assessment: - Prior to the procedure, a History and Physical was performed, and patient medications and allergies were reviewed. The patient's tolerance of previous anesthesia was also reviewed. The risks and benefits of the procedure and the sedation options and risks were discussed with the patient. All questions were answered, and informed consent was obtained. Prior Anticoagulants: The patient has taken no previous anticoagulant or antiplatelet agents. ASA Grade Assessment: II - A patient with mild systemic disease. After reviewing the risks and benefits, the patient was deemed in satisfactory condition to undergo the procedure. After I obtained informed consent, the scope was passed under direct vision. Throughout the procedure, the patient's blood pressure, pulse, and oxygen saturations were monitored continuously. The scope was introduced through the anus and advanced to the terminal ileum. The colonoscopy was performed without difficulty. The patient tolerated the procedure well. The quality of the bowel preparation was good. The terminal ileum, ileocecal valve, appendiceal orifice, and rectum were photographed. Findings: The perianal and digital rectal examinations were normal. Non-bleeding internal hemorrhoids were found during retroflexion. The hemorrhoids were small. Impression: - Non-bleeding internal hemorrhoids. - No specimens collected. Recommendation: - Resume previous diet. - Continue present medications. - Repeat colonoscopy in 10 years for surveillance. - Return to primary care physician as previously scheduled. True Alcocer DO 06/25/2017 10:30:20 AM This report has been signed electronically. Note Initiated On: 06/25/2017 9:20 AM I attest to the content of the Intraoperative Record and orders documented therein, exceptions below
[2017-06-25 10:50] VITALS: BP 118/70; PULSE 60; O2SAT 95
--- NOTE | 2017-06-25 10:54 | Anesthesiology Progress Note ---
Anesthesia Post Op Note Date & Time Jun 25, 2017 at 10:54 Vital Signs Pain Intensity: 0 Vital Signs Past 12 Hours Date Time Temp Pulse Resp B/P (MAP) Pulse Ox O2 Delivery O2 Flow Rate FiO2 06/25/17 10:50 60 18 118/70 (86) 95 Room Air 06/25/17 10:35 61 18 112/73 (86) 94 Room Air 06/25/17 10:20 76 18 97/61 (73) 94 Room Air 06/25/17 08:50 36.7 61 18 145/82 (103) 94 Room Air Notes Mental Status: alert / awake / arousable, participated in evaluation Pt Amnestic to Procedure: Yes Nausea / Vomiting: adequately controlled Pain: adequately controlled Airway Patency, RR, SpO2: stable & adequate BP & HR: stable & adequate Hydration State: stable & adequate Anesthetic Complications: no major complications apparent
== END | disposition home or self-care (01) ==
LOC: C.GI 08:19
PROVIDERS: ATTEND Internal Medicine
DX: Z12.11 Encounter for screening for malignant neoplasm of colon (principal); K21.9 Gastro-esophageal reflux disease without esophagitis; K64.8 Other hemorrhoids; Z90.89 Acquired absence of other organs; E78.5 Hyperlipidemia, unspecified